=== PATIENT | female | born 2000 | race Caucasian/White ===

== ENCOUNTER 2019-10-22 07:52 | Emergency (ER) | payer MEDICAID ==
[2019-10-22] MEDS ORDERED: Morphine 4 MG/ML Syringe IVPUSH ONE (07:56)
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
[2019-10-22] MEDS ORDERED: Ondansetron 4 MG/2 ML SDV IVPUSH ONE ×2 (08:24→08:37)
[2019-10-22] MEDS ORDERED: Iopamidol 755 MG/ML 200 ML Multipack Bottle IVPUSH STA (08:26)
[2019-10-22 08:32] LABS: BLOOD UREA NITROGEN,BUN 12 mg/dL (7.0-18.0); CARBON DIOXIDE,CO2 26.6 mmol/L (21.0-32.0); CHLORIDE,CL 106 mmol/L (98-107); GLUCOSE RANDOM 101 mg/dL (74-106); POTASSIUM,K 3.4 mmol/L (3.5-5.1); SODIUM,NA 141 mmol/L (136-145)
--- NOTE | 2019-10-22 08:34 | CT ---
Head CT Technique: Multiple axial sections through the brain were obtained. Intravenous contrast was not utilized. Comparison: No prior intracranial imaging is available. Findings: Ventricles along with basal cisterns and sulci over the convexities are within normal limits for the patient's age. No abnormal parenchymal densities are seen. No evidence of intracranial hemorrhage. No midline shift or mass-effect is seen. Bone window settings were reviewed. No acute calvarial finding is appreciated. Mastoid sinuses show nothing acute. Visualized paranasal sinuses also show nothing acute. Impression: 1. Nothing acute is appreciated on noncontrast head CT study. Diagnostic code #1 This report was dictated in MDT
--- NOTE | 2019-10-22 08:36 | CT ---
CT chest Technique: Multiple axial sections were obtained from above the lung apices inferiorly through the lung bases. Intravenous contrast was utilized. Reconstructed coronal and sagittal images were reviewed. Findings: Mediastinum and hilar region show no adenopathy. Aorta shows no aneurysm. Soft tissue density is identified within the superior mediastinum compatible with thymic tissue. No pericardial thickening is seen. Lungs shows very slight groundglass appearance to the left lung base. Minimal pulmonary contusion is possible. Lungs otherwise are clear. No pneumothorax is seen. No pleural effusions are noted. Bone window settings were reviewed. No discrete rib fracture is appreciated. Thoracic spine shows no compression deformities. Reconstructed sagittal images of the sternum show no fracture. Impression: 1. Minimal groundglass appearance within the left lung base possibly due to minimal pulmonary contusion. 2. No additional abnormality is appreciated on CT study of the chest. Diagnostic code #3 This report was dictated in MDT
[2019-10-22] MEDS ORDERED: Ondansetron 4 MG/2 ML SDV ONE (08:37)
--- NOTE | 2019-10-22 08:39 | CT ---
CT abdomen and pelvis Technique: Multiple axial sections were obtained from above the dome of the diaphragm inferiorly through the pubic symphysis. Intravenous contrast was utilized. No oral contrast has been given. Comparison: No prior abdominal imaging. Findings: Liver contains no focal parenchymal abnormality. Minimal amount of fat is noted next to the ligamentum teres fissure which is felt to be a normal variant. Spleen appears normal. Adrenal glands show no nodule. Kidneys show symmetric contrast enhancement. Small cortical cyst is noted within the left kidney measuring 9 mm. Aorta shows no aneurysm. Pancreas appears within normal limits. No retroperitoneal adenopathy or mesenteric abnormalities are seen. Appendix is seen which is normal in size. IUD present within the endometrial cavity of the uterus. No free fluid or inflammatory change is seen. Bone window settings were reviewed. No compression deformities are seen within the spine. No pelvic fracture is seen. Right left hip show no fracture. Impression: 1. Nothing acute is appreciated on CT study of the abdomen and pelvis. Diagnostic code #2 This report was dictated in MDT
--- NOTE | 2019-10-22 08:47 | CT ---
CT cervical spine Technique: Multiple axial sections were obtained from above C1 inferiorly to the top of T3. Reconstructed sagittal and coronal images were obtained. Comparison: No prior cervical spine imaging is noted. Minimal calcification is seen above the superior endplate of C5 which is believed to represent minimal disc calcification. Vertebral body heights and disc spaces are preserved. No bony central or bony neural foraminal stenosis is seen. No fracture is identified. No abnormal subluxation is seen. Impression: 1. Nothing acute is identified on CT study of the cervical spine. Diagnostic code #2 This report was dictated in MDT
[2019-10-22] MEDS ORDERED: Ketorolac 15 MG/ML SDV IVPUSH ONE (08:49)
== END 2019-10-22 09:13 | disposition home or self-care (01) ==
LOC: MW.ED 07:52
DX: S16.1XXA Strain of muscle, fascia and tendon at neck level, initial encounter (principal); R07.81 Pleurodynia; M54.5 Low back pain; R10.9 Unspecified abdominal pain; Z91.040 Latex allergy status; Z91.018 Allergy to other foods; V49.9XXA Car occupant (driver) (passenger) injured in unspecified traffic accident, initial encounter
CPT/HCPCS: 36415; 70450; 71260; 72125; 74177; 80048; 85025; 86850; 86900; 86901; 96374; 96375; 99284; J1885; J2270; J2405; Q9967

== ENCOUNTER 2023-12-25 18:22 | Emergency (ER) | payer SELFPAY ==
[2023-12-25 20:06] LABS: APPEARANCE,URINE CLEAR; BILIRUBIN,URINE NEGATIVE (NEGATIVE); COLOR,URINE YELLOW; GLUCOSE,URINE NEGATIVE (NEGATIVE); KETONES,URINE NEGATIVE (NEGATIVE); LEUKOCYTE ESTERASE,URINE NEGATIVE (NEGATIVE); NITRITE,URINE NEGATIVE (NEGATIVE); OCCULT BLOOD,URINE NEGATIVE (NEGATIVE); PROTEIN,URINE 30 mg/dL (NEGATIVE); UROBILINOGEN,URINE 0.2 EU/dL (<2.0)
[2023-12-25] MEDS: Acetaminophen 500 MG Tab PO STA (20:14)
[2023-12-25] MEDS: Diphtheria,Pertussis(Acell),Tetanus Vaccine 0.5 ML Syringe IM ONE (20:15)
[2023-12-25] MEDS: Lidocaine 1% 5 ML VIAL INJECT STA (20:15)
[2023-12-25] MEDS: Cephalexin 500 MG Cap PO STA (20:15)
[2023-12-25 20:17] LABS: BACTERIA,URINE FEW (NEGATIVE); EPITHELIAL CELLS,URINE MANY (NONE-FEW); RBC,URINE 0-1 (0-2/HPF)
== END 2023-12-25 21:10 ==
LOC: MW.ED 18:22 → MERGE 18:22 → MW.ED 21:10
DX: S91.312A Laceration without foreign body, left foot, initial encounter (principal); Z75.8 Other problems related to medical facilities and other health care; Z23 Encounter for immunization; Z79.899 Other long term (current) drug therapy; Z32.02 Encounter for pregnancy test, result negative; W26.0XXA Contact with knife, initial encounter; Y92.149 Unspecified place in prison as the place of occurrence of the external cause
CPT/HCPCS: 12002; 81001; 81025; 90471; 90715; 99283; A9270; J3490